=== PATIENT | female | born 1950 | race Caucasian/White ===

== ENCOUNTER 2018-11-01 09:00 | Emergency (ER) | payer OTHER ==
[~2018-11-01] VITALS: Ht 165.1 cm; Wt 89.0 kg
[2018-11-01 09:03] VITALS: BP 151/72; PULSE 74; RESP 18; Ht 165.1 cm; Wt 89.0 kg
[2018-11-01] MEDS ORDERED: IBUP800T48 PO (10:19)
--- NOTE | 2018-11-01 10:21 | ERD ---
ER Documentation Chief Complaint Chief Complaint LT THIGH PAINFUL LUMP X 5 YRS HPI 67-year-old female complaining of left thigh pain x5 years. She reports that she has previously seen a provider and got diagnosed with a lipoma in her left thigh. The provider said supportive treatment and to watch and wait when she saw him him 5 years ago. She states she has not had any issues until about a week ago where the lipoma started causing her leg pain again. She reports the pain is 6 out of 10 throbbing pain. The pain makes it difficult for her to walk long distances and is causing her left leg weakness. Patient has occasionally taken NSAIDs with minor relief of her pain. Patient denies any radiation of her pain and states that it is located in her left upper thigh. She reports that activity makes it worse and resting makes the pain better. ROS All systems reviewed and are negative except as per history of present illness. Medications Home Meds Active Scripts Ibuprofen* (Motrin*) 800 Mg Tab, 800 MG PO Q6H PRN for PAIN AND OR ELEVATED TEMP, #30 TAB Prov:ZEYNEP ABBASI PA-C 11/01/18 FmHx Family History: No diabetes Physical Exam Vitals Vital Signs Date Temp Pulse Resp B/P (MAP) Pulse Ox O2 O2 Flow FiO2 Time Delivery Rate 11/01/18 98.1 74 18 151/72 99 09:03 (98) Physical Exam Const: No acute distress Head: Atraumatic Eyes: Normal Conjunctiva ENT: Normal External Ears, Nose and Mouth. Neck: Full range of motion. No meningismus. Resp: Clear to auscultation bilaterally Cardio: Regular rate and rhythm, no murmurs Abd: Soft, non tender, non distended. Normal bowel sounds Skin: No rashes Back: No midline or flank tenderness Ext: Left Thigh: Moderate size 1 in circumference lipoma present under the skin in the left upper thigh. Lipoma is tender when pressed patient has good range of motion strength in all her extremities Neur: Awake and alert Psych: Normal Mood and Affect Procedures/MDM ED COURSE: The patient was stable throughout ED course. I kept the patient informed of laboratory and diagnostic imaging results throughout the ED course. MEDICATIONS GIVEN: [None.] MEDICAL DECISION MAKING: Patient is a 67-year-old female complaining of left thigh lipoma x5 years. Patient has had this evaluated and was diagnosed with a lipoma by another provider who told to watch and wait it. On physical exam there is a 1 inch circumference lesion under the skin of her left upper thigh. The lesion is painful when pressed upon. I believe this is the lipoma pressing on her nerve causing her pain. I recommended that she follows up with a general surgeon for options for possible removal in the future. H&P with other data not c/w emergent process (eg. DVT, AAO, compartment syndrome, nec fasc). No signs of ischemia, neurovascular compromise, compartment syndrome, or septic joint, avascular necrosis, or osteomyelitis. Vital signs were reviewed. Patient is afebrile. Patient was not hypoxic. Patient was hemodynamically stable. PRESCRIPTION: Ibuprofen DISCHARGE: At this time, patient is stable for discharge and outpatient management. I have instructed the patient to follow-up with his/her primary care physician in 1-2 days. I have discussed with the patient the possibility of needing to see a specialist for further workup and imaging studies if symptoms persist. I have instructed the patient to promptly return to the ER for any new or worsening symptoms including increased pain, fever, nausea, vomiting, weakness or LOC. The patient and/or family expressed understanding of and agreement with this plan. All questions were answered. Home care instructions were provided. Disclaimer: Inadvertent spelling and grammatical errors are likely due to EHR/dictation software use and do not reflect on the overall quality of patient care. Also, please note that the electronic time recorded on this note does not necessarily reflect the actual time of the patient encounter. Departure Diagnosis: Primary Impression: Pain of left leg Additional Impression: Lipoma Lipoma location: lower extremity Laterality: left Qualified Codes: D17.24 - Benign lipomatous neoplasm of skin and subcutaneous tissue of left leg Condition: Fair Patient Instructions: Lipoma Referrals: COMMUNITY CLINICS YOU HAVE RECEIVED A MEDICAL SCREENING EXAM AND THE RESULTS INDICATE THAT YOU DO NOT HAVE A CONDITION THAT REQUIRES URGENT TREATMENT IN THE EMERGENCY DEPARTMENT. FURTHER EVALUATION AND TREATMENT OF YOUR CONDITION CAN WAIT UNTIL YOU ARE SEEN IN YOUR DOCTORS OFFICE WITHIN THE NEXT 1-2 DAYS. IT IS YOUR RESPONSIBILITY TO MAKE AN APPOINTMENT FOR FOLOW-UP CARE. IF YOU HAVE A PRIMARY DOCTOR --you should call your primary doctor and schedule an appointment IF YOU DO NOT HAVE A PRIMARY DOCTOR YOU CAN CALL OUR PHYSICIAN REFERRAL HOTLINE AT IF YOU CAN NOT AFFORD TO SEE A PHYSICIAN YOU CAN CHOSE FROM THE FOLLOWING COMMUNITY CLINICS [facility] [address] [facility] [address] [facility] [address] [facility] [address] [facility] [address] [facility]. [facility] [address] [facility]. [facility] YOU HAVE RECEIVED A MEDICAL SCREENING EXAM AND THE RESULTS INDICATE THAT YOU DO NOT HAVE A CONDITION THAT REQUIRES URGENT TREATMENT IN THE EMERGENCY DEPARTMENT. FURTHER EVALUATION AND TREATMENT OF YOUR CONDITION CAN WAIT UNTIL YOU ARE SEEN IN YOUR DOCTORS OFFICE WITHIN THE NEXT 1-2 DAYS. IT IS YOUR RESPONSIBILITY TO MAKE AN APPOINTMENT FOR FOLOW-UP CARE. IF YOU HAVE A PRIMARY DOCTOR --you should call your primary doctor and schedule and appointment IF YOU DO NOT HAVE A PRIMARY DOCTOR YOU CAN CALL OUR PHYSICIAN REFERRAL HOTLINE AT . IF YOU CAN NOT AFFORD TO SEE A PHYSICIAN YOU CAN CHOSE FROM THE FOLLOWING [facility]: [facility] [address] [place] [address] [facility] [address] [place], [place] [id number] [place] [address] [address] [place] [address] Additional Instructions: Follow-up with your primary care provider Dr. Iqbal for referral to general surgery for removal of lipoma Llame al doctor KEN y rosario trinity TEOFILO PARA DENTRO DE 2-3 RECIO.Dgale a la secretaria que nosotros le instruimos hacer esta teofilo.Avise o llame si desai condicin se empeora antes de la teofilo. Regresa aqui si peor o no mejor. ZEYNEP ABBASI PA-C Nov 01, 2018 10:21
== END 2018-11-01 10:48 | disposition home or self-care (01) ==
LOC: FTE 09:00
DX: D17.24 Benign lipomatous neoplasm of skin and subcutaneous tissue of left leg (principal)
CPT/HCPCS: 99282